=== PATIENT | male | born 1990 | race African-American/Black ===

== ENCOUNTER 2017-05-01 06:16 | Emergency (ER) | payer MEDICAID, OTHER ==
[~2017-05-01] VITALS: Ht 185.4 cm; Wt 149.7 kg
[2017-05-01 07:30] LABS: Basophils # (auto) 0 uL; Basophils % (auto) 0.5 % (0.0-2.0); CONDITION AutoValidated; DEFINITIVE SEE PRINTOUT; Eosinophils # (auto) 0.1 uL; Eosinophils % (auto) 1.8 % (0.0-7.0); Hematocrit 41.7 % (41.0-53.0); Hemoglobin 13.6 g/dL (13.5-17.5); Lymphocytes # (auto) 2.9 uL; Lymphocytes % (auto) 35.6 % (10.0-50.0); Mean Corpuscular Hemoglobin 26.1 pg (28.0-32.0); Mean Corpuscular Hgb Conc. 32.7 g/dL (32.0-36.0); Mean Corpuscular Volume 79.8 fL (80.0-100.0); Mean Platelet Volume 9.8 fL (7.4-10.4); Monocytes # (auto) 0.7 uL; Monocytes % (auto) 8.2 % (0.0-12.0); Neutrophils # (auto) 4.3 uL; Neutrophils % (auto) 53.9 % (37.0-80.0); Platelet Count (auto) 229 10^3/uL (140-450); Red Cell Distribution Width 14.6 % (11.6-16.0)
[2017-05-01 07:46] LABS: INR 1.03 (0.9-1.15); Partial Thromboplastin Time 27.1 sec (22.64-33.71); Prothrombin Time 11.2 sec (9.37-12.3)
[2017-05-01 07:53] LABS: Albumin 3.5 g/dL (3.4-5.0); Anion Gap 9 (5-15); Blood Urea Nitrogen 9 mg/dL (7-18); Calcium 8.6 mg/dL (8.5-10.1); Carbon Dioxide 26 mmol/L (21-32); Chloride 109 mmol/L (98-107); Glucose 124 mg/dL (74-106); Potassium 3.7 mmol/L (3.5-5.1); Sodium 144 mmol/L (136-145)
[2017-05-01 07:56] LABS: Aspartate Aminotransferase 23 U/L (15-37); BUN/Creatinine Ratio 11.8; GFR African American 159 mL/min; GFR Non-African American 132 mL/min
[2017-05-01 08:14] LABS: Alkaline Phosphatase 97 U/L (45-117); Bilirubin, Total 0.3 mg/dL (0.2-1.0); Total Protein 7.5 g/dL (6.4-8.2)
[2017-05-01 08:16] LABS: B-Type Natriuretic Peptide < 5 pg/mL (0-100)
[2017-05-01] MEDS ORDERED: ASPirin 325 MG TAB PO ONE (08:30)
[2017-05-01 08:35] VITALS: BP 126/81
[2017-05-01 08:40] LABS: Urine Bilirubin Negative (Negative); Urine Blood Negative /uL (Negative); Urine Color Yellow (Yellow); Urine Glucose Normal (Normal); Urine Ketone Negative (Negative); Urine Mucus FEW (None Seen); Urine Nitrite Negative (Negative); Urine RBC 1 /hpf (0 - 3)
== END 2017-05-01 09:30 | disposition home or self-care (01) ==
LOC: ER 06:16
DX: R07.89 Other chest pain (principal); F41.9 Anxiety disorder, unspecified; I48.91 Unspecified atrial fibrillation; E11.9 Type 2 diabetes mellitus without complications; I10 Essential (primary) hypertension; Z87.442 Personal history of urinary calculi
CPT/HCPCS: 36415; 71010; 80053; 81001; 83735; 83880; 84484; 85025; 85610; 85730; 93005